=== PATIENT | female | born 2000 | race Caucasian/White ===

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

== ENCOUNTER 2021-03-21 15:28 | Emergency (ER) | payer OTHER ==
[~2021-03-21 15:28] MED LIST: PHENERGAN 25 MG25 M1 PO; PLAN B ONE-STE1.5 MG PO
[2021-03-21] MEDS ORDERED: IBU600 MG PO (19:02)
== END 2021-03-21 17:05 | disposition home or self-care (01) ==
LOC: ER1 15:28
DX: S52.134A Nondisplaced fracture of neck of right radius, initial encounter for closed fracture (principal); W19.XXXA Unspecified fall, initial encounter
CPT/HCPCS: 73080; 99283

== ENCOUNTER 2021-10-16 22:09 | Emergency (ER) | payer OTHER ==
[~2021-10-16 22:09] MED LIST changes: +IBU600 MG PO
== END 2021-10-17 00:01 | disposition left against medical advice (07) ==
LOC: ER1 22:09
DX: O99.512 Diseases of the respiratory system complicating pregnancy, second trimester (principal); R05.9 Cough, unspecified; Z3A.24 24 weeks gestation of pregnancy
CPT/HCPCS: 0240U; 87081; 87880; 99281

== ENCOUNTER 2022-01-18 16:41 | Inpatient (IN) | payer OTHER ==
[~2022-01-18] VITALS: Ht 170.2 cm; Wt 82.1 kg
[2022-01-18 18:39] LABS: HEMOGLOBIN 10.5 gm/dl (12.3-15.3); RED BLOOD COUNT 4.04 M/UL (4.00-5.10)
[2022-01-20 06:21] LABS: HEMOGLOBIN 10.2 gm/dl (12.3-15.3)
[2022-01-21] MEDS ORDERED: COLACE 100MG C100 MG PO (13:22)
[2022-01-21] MEDS ORDERED: IBU600 MG PO (13:22)
[2022-01-21] MEDS ORDERED: IBUPROFEN600 MG PO (13:22)
== END 2022-01-21 16:09 | disposition home or self-care (01) | DRG 807 ==
LOC: GENOP 16:41 → OB 17:49
PROVIDERS: Obstetrics & Gynecology; ADMIT Obstetrics & Gynecology
PROC: 10E0XZZ Delivery of Products of Conception, External Approach (ICD-10-PCS; principal; 2022-01-19)
PROC: 10907ZC Drainage of Amniotic Fluid, Therapeutic from Products of Conception, Via Natural or Artificial Opening (ICD-10-PCS; 2022-01-19)
PROC: 3E033VJ Introduction of Other Hormone into Peripheral Vein, Percutaneous Approach (ICD-10-PCS; 2022-01-19)
PROC: 0UH97HZ Insertion of Contraceptive Device into Uterus, Via Natural or Artificial Opening (ICD-10-PCS; 2022-01-19)
PROC: 0HQ9XZZ Repair Perineum Skin, External Approach (ICD-10-PCS; 2022-01-19)
PROC: 4A1H7CZ Monitoring of Products of Conception, Cardiac Rate, Via Natural or Artificial Opening (ICD-10-PCS; 2022-01-19)
PROC: 10H073Z Insertion of Monitoring Electrode into Products of Conception, Via Natural or Artificial Opening (ICD-10-PCS; 2022-01-19)
PROC: 3E0234Z Introduction of Serum, Toxoid and Vaccine into Muscle, Percutaneous Approach (ICD-10-PCS; 2022-01-19)
DX: O70.0 First degree perineal laceration during delivery (principal); Z37.0 Single live birth; Z82.49 Family history of ischemic heart disease and other diseases of the circulatory system; Z80.8 Family history of malignant neoplasm of other organs or systems; Z83.2 Family history of diseases of the blood and blood-forming organs and certain disorders involving the immune mechanism; Z3A.39 39 weeks gestation of pregnancy; Z23 Encounter for immunization
CPT/HCPCS: 36415; 81001; 85014; 85018; 85025; 85461; 86850; 90715; J2405; J2590